=== PATIENT | female | born 1985 | race Caucasian/White ===

== ENCOUNTER 2018-11-23 23:09 | Emergency (ER) | payer BC ==
--- NOTE | 2018-11-24 00:13 | ED ---
Abdominal Pain HPI - General Chief Complaint: Abdominal Pain Stated Complaint: Transfer from [facility] Seen by Provider: 11/23/18 23:26 Source: patient, RN notes reviewed Mode of arrival: ambulatory Limitations: no limitations - History of Present Illness Initial Comments: 32-year-old female presents emergency Department as a transfer from [facility] for RIGHT UPPER QUADRANT. PATIENT REPORTS THAT SHE'S HAD SOME ON-AND- OFF PAIN WHERE QUADRANT. IT DID WORSEN AFTER SHE ATE LUNCH TODAY AND DINNER. PATIENT STATES IT IS MUCH BETTER WHEN SHE LAYS FLAT. PATIENT STATES THAT SHE IS 23 WEEKS WITH NO COMP PATIENTS. SHE DENIES CHEST PAIN OR SHORTNESS OF BREATH. PATIENT DENIES ANY LEG SPLINT, LEG EDEMA. SHE DOES ADMIT THAT THE PAIN MAKES HER NAUSEATED. PATIENT DENIES ANY DYSURIA, HEMATURIA. DENIES ANY PALPITATIONS HER AT THIS TIME. PATIENT'S GAS OPERATIONS SUPERINTENDENT IS DR. BERNABE. - Related Data Home Medications Medication Instructions Recorded Confirmed Apn-Uzck-Uwlof Acid 1 cap PO HS 11/23/18 11/23/18 [-U Capsule (formulary)] Allergies Allergy/AdvReac Type Severity Reaction Status Date / Time No Known Allergies Allergy Verified 11/23/18 23:48 Review of Systems ROS Statement: Those systems with pertinent positive or pertinent negative responses have been documented in the HPI. ROS Other: All systems not noted in ROS Statement are negative. Past Medical History Past Medical History: No Reported History History of Any Multi-Drug Resistant Organisms: None Reported Past Surgical History: No Surgical Hx Reported Past Psychological History: Anxiety, Depression Smoking Status: Never smoker Past Alcohol Use History: None Reported Past Drug Use History: None Reported General Exam Limitations: no limitations General appearance: alert, in no apparent distress Head exam: Present: atraumatic, normocephalic, normal inspection Eye exam: Present: normal appearance, PERRL, EOMI. Absent: scleral icterus, conjunctival injection, periorbital swelling ENT exam: Present: normal exam, mucous membranes moist Neck exam: Present: normal inspection. Absent: tenderness, meningismus, lymphadenopathy Respiratory exam: Present: normal lung sounds bilaterally. Absent: respiratory distress, wheezes, rales, rhonchi, stridor Cardiovascular Exam: Present: regular rate, normal rhythm, normal heart sounds. Absent: systolic murmur, diastolic murmur, rubs, gallop, clicks GI/Abdominal exam: Present: soft, tenderness (Mild right upper quadrant), normal bowel sounds. Absent: distended, guarding, rebound, rigid Back exam: Absent: CVA tenderness (R), CVA tenderness (L) Skin exam: Present: warm, dry, intact, normal color. Absent: rash Course Vital Signs 11/23/18 23:19 Temperature 98.5 F Pulse Rate 73 Respiratory 20 Rate Blood Pressure 121/77 O2 Sat by Pulse 99 Oximetry Medical Decision Making - Medical Decision Making 32-year-old female presented for right-sided abdominal pain. Patient was transferred from [facility] for ultrasound. Patient had prior workup including labs, chest x-ray, EKG which only revealed a leukocytosis. Patient IS NEGATIVE THIS TIME. PATIENT'S SYMPTOMS ARE MORE CONSISTENT WITH biliary colic. Patient will follow low-fat diet, continue Tylenol and return for any worsening symptoms. Disposition Clinical Impression: Abdominal pain, Biliary colic Disposition: HOME SELF-CARE Condition: Stable Instructions (If sedation given, give patient instructions): Abdominal Pain (ED ) Additional Instructions: Please return to the Emergency Department if symptoms worsen or any other concerns. Is patient prescribed a controlled substance at d/c from ED?: No Referrals: None,Stated [Primary Care Provider] - 1-2 days Time of Disposition: 00:49
--- NOTE | 2018-11-24 00:35 | US ---
EXAM: US Abdomen Limited-right upper quadrant CLINICAL HISTORY: Reason: Pain TECHNIQUE: Real-time ultrasound of the right upper quadrant with image documentation COMPARISON: None available FINDINGS: Liver: Liver is mildly enlarged measuring 18.9 cm in length. No focal hepatic abnormalities. Gallbladder: No evidence of cholelithiasis or gallbladder wall thickening. Common bile duct: nondilated measuring 4.5 mm. Pancreas: Pancreas is unremarkable. Right Kidney: Right kidney is of normal size. No hydronephrosis. IMPRESSION: Mild hepatomegaly. No evidence of cholelithiasis or gallbladder wall thickening.
[2018-11-24 01:16] VITALS: BP 109/57; PULSE 82; RESP 14; TEMP 98.2
== END 2018-11-24 01:15 | disposition home or self-care (01) ==
LOC: EC 23:09
DX: O99.612 Diseases of the digestive system complicating pregnancy, second trimester (principal); K80.50 Calculus of bile duct without cholangitis or cholecystitis without obstruction; Z3A.23 23 weeks gestation of pregnancy
CPT/HCPCS: 76705; 99284

== ENCOUNTER 2018-12-02 13:58 | Outpatient (CLI) | payer BC ==
[2018-12-02 15:05] LABS: Appearance,Urine Clear (Clear); Bacteria,Urine Rare /hpf; Bilirubin,Urine Negative (Negative); Blood,Urine Negative (Negative); Color,Urine Light Yellow; Glucose,Urine (UA) Negative (Negative); Ketones,Urine Negative (Negative); Leukocyte Esterase,Urine Small (Negative); Mucus,Urine Rare /hpf; Nitrite,Urine Negative (Negative); Protein,Urine Negative (Negative); RBC,Urine 1 /hpf (0-5); Specific Gravity,Urine 1.006 (1.001-1.035); Squamous Epithelial Cell,Urine <1 /hpf (0-4); Urobilinogen,Urine <2.0 mg/dL (<2.0); WBC,Urine 2 /hpf (0-5)
[2018-12-02 15:29] LABS: Basophils # (A) 0.1 k/uL (0-0.2); Basophils % (A) 0 %; Eosinophils # (A) 0.2 k/uL (0-0.7); Eosinophils % (A) 1 %; HCT 35.2 % (34.0-46.0); HGB 11.7 gm/dL (11.4-16.0); Lymphocytes # (A) 1.8 k/uL (1.0-4.8); Lymphocytes % (A) 13 %; MCH 30.7 pg (25.0-35.0); MCHC 33.2 g/dL (31.0-37.0); MCV 92.7 fL (80.0-100.0); Mean Platelet Volume 7.5; Monocytes # (A) 0.6 k/uL (0-1.0); Monocytes % (A) 4 %; Neutrophils # (A) 11.3 k/uL (1.3-7.7); Neutrophils % (A) 80 %; Platelet Count 245 k/uL (150-450); RDW 14.3 % (11.5-15.5)
[2018-12-02 15:58] LABS: ALT 28 U/L (9-52); AST 20 U/L (14-36); Albumin 3.4 g/dL (3.5-5.0); Alkaline Phosphatase 82 U/L (38-126); Anion Gap 8 mmol/L; Blood Urea Nitrogen 9 mg/dL (7-17); Calcium 9.1 mg/dL (8.4-10.2); Carbon Dioxide 20 mmol/L (22-30); Chloride 108 mmol/L (98-107); Glucose 80 mg/dL (74-99); Sodium 136 mmol/L (137-145); Total Bilirubin 0.3 mg/dL (0.2-1.3); Total Protein 6.2 g/dL (6.3-8.2)
--- NOTE | 2018-12-02 16:33 | US ---
EXAMINATION TYPE: US abdomen limited DATE OF EXAM: 12/02/2018 COMPARISON: US 11/23/2018 CLINICAL HISTORY: rt upper quad pain. 24 weeks preg. EXAM MEASUREMENTS: Liver Length: 16.8 cm Gallbladder Wall: 0.1 cm CBD: 0.5 cm Right Kidney: 12.7 x 4.3 x 5.1 cm Pancreas: Tail obscured by overlying bowel gas Liver: wnl Gallbladder: wnl Evidence for sonographic Garcia's sign: No CBD: wnl Right Kidney: wnl IMPRESSION: No sonographic evidence of cholelithiasis or acute cholecystitis. No right-sided hydronep hrosis.
--- NOTE | 2018-12-02 16:44 | US ---
EXAMINATION TYPE: US OB >= 14 wk fetus DATE OF EXAM: 12/02/2018 COMPARISON: None CLINICAL HISTORY: rt upper quad pain. 24 weeks complete RUQ pain x2 weeks TECHNIQUE: TA GESTATIONAL AGE / DATING Physician Established: (24 weeks/6 days) EDC: 03/18/2019 Dates by LMP: (24 weeks/6 days) EDC: 03/18/2019 Dates by First Scan: No previous this is first scan Dates by Current Scan: (25 weeks/0 days) EDC: 03/17/2019 Beta HCG (if available): Not available at this time SURVEY IUP: Single PLACENTA: Fundal PREVIA: No Previa MELITON: 17.5 cm Normal CERVICAL LENGTH (transabdominal: norm > 3.0cm): 3.1 cm BIOMETRY PRESENTATION: Vertex LIE: Longitudinal BPD: 6.4 cm 25 weeks / 6 days HC: 23.2 cm 25 weeks / 2 days AC: 20.48 cm 25 weeks / 0 days FL: 4.7 cm 25 weeks / 3 days ESTIMATED WEIGHT IN GRAMS: 789 grams ESTIMATED WEIGHT IN LBS/OZ: 1 lbs. 12 oz. WEIGHT PERCENTAGE BASED ON ESTABLISHED DATES: 58.9% HC/AC: 1.13 Normal FL/AC: 22.68 Normal HEART RATE: 157 bpm RHYTHM: Normal Viable IUP, measurements consistent with dates. Non-vascular, hypoechoic area visualized within the p lacenta measuring 2.2 x 1.7 x 2.4 cm IMPRESSION: Hypoechoic avascular wedge-shaped region of the along the peripheral margin of the fundal implantatio n of the placenta. Solitary image demonstrates what appears to be placental tissue at the posterior a spect and therefore differential is for a large venous steinberg or small retroplacental hemorrhage. Given no history of trauma close follow-up is recommended to ensure no interval increase in size. A Red level critical message alert has been initiated for Naresh Parker MD via the [facility] Critical Results System on 12/02/2018 4:42 PM. This message alert has been sent to Naresh Pakrer MD via the preferences provided by the clinician for the receipt of Radiology Critical Findings. Mess age ID [id number].
--- NOTE | 2018-12-02 17:08 | P.MSEPDOC ---
Presenting Problems - Arrival Data Date of Arrival on Unit: 12/02/18 Time of Arrival on Unit: 13:58 Mode of Transport: Portable I agree with the RN Medical Screening Exam: Yes Risk & Benefit of care provided described in d/c instruction: Yes Diagnosis: UPPER ABDOMINAL PAIN, UNSPECIFIED (Patient presents to triage with complaints of 4 week history of right upper quadrant back pain. Patient was in the emergency department here previously approximately a week ago and had a right upper quadrant ultrasound which was negative. She also had an EKG which was negative. Patient denies any nausea vomiting. Pain is localized to the upper right back. I did order a repeat right upper quadrant ultrasound which did not show any evidence of cholelithiasis. I also ordered a complete OB ultrasound which showed what appears to be a placental Cook although and discussion with the radiologist she cannot 100% rule out small abruption however at this point is leaning more towards a Cook. Patient is not having any vaginal bleeding. heart tones are reassuring for gestational age. At this time there is no evidence of maternal compromise. Patient went to be discharged home and I'll have her follow paternal medicine for more detailed ultrasound. I did give her instructions return if she had any vaginal bleeding or worsening pain with other concerns. Long discussion with the patient and her about clinical situation and further follow-up.)
[2018-12-02 18:10] VITALS: BP 118/73; PULSE 77; RESP 16; TEMP 97.9
--- NOTE | 2018-12-05 06:24 | P.MSEPDOC ---
Presenting Problems - Arrival Data Date of Arrival on Unit: 12/02/18 Time of Arrival on Unit: 13:58 Mode of Transport: Portable - Complaint OB-Reason for Admission/Chief Complaint: Pain, Other Comment: rt upper quad pain 4 weeks ago, on and off since.last 10 days every day starts about noon. gets worse though day Medical History - Information : 1 Para: 0 Term: 0 : 0 Abortions: Spontaneous or Elective: 0 Number of Living Children: 0 - Gestational Age Gestational Age by CR (wks/days): 24 Weeks and 6 Days Review of Systems - Review of Systems Constitutional: No problems Breast: No problems ENT: No problems Cardiovascular: No problems Respiratory: No problems Gastrointestinal: No problems Genitourinary: No problems Musculoskeletal: No problems Neurological: No problems Skin: No problems Vital Signs - Temperature Temperature: 97.9 F Temperature Source: Temporal Artery Scan - Pulse Right Radial Pulse Rate: 77 Pulse Assessment Method: Auscultation - Respirations Respiratory Rate: 16 Oxygen Delivery Method: Room Air - Blood Pressure Right Arm Blood Pressure: 118/73 Blood Pressure Mean: 88 Blood Pressure Source: Automatic Cuff Medical Screen Scoring (Pre) - Cervical Exam Dilation: Exam Deferred - Uterine Contractions Frequency: N/A Duration: N/A Intensity: N/A - Maternal Vital Signs Maternal Temperature: N/A Maternal Blood Pressure: N/A Signs of Preeclampsia: N/A Maternal Respirations: N/A - Pain Assessment Pain Location and Character: Right, Upper, Abdomen Pain Scale Used: Numeric (1 - 10) Pain Intensity: 7 - Maternal Trauma Maternal Trauma: N/A - Assessment Baseline FHR: 140 Heart Rate - NICHD Category: Category I (Normal) = 0 Position: N/A Station: N/A - Total Score Total Score (Pre): 0 - Level of Risk Level of Risk: N/A Physician Notification (Pre) - Physician Notified Physician Notified Date: 12/02/18 Physician Notified Time: 14:00 Physician/Practitioner Notifed:: lynette Spoke With: lynette New Order Received: Yes - Notification Comment Comment: came to see. discussed plan of care with pt/so Disposition - Disposition OB Disposition: Physician follow up in office, Discharge to home, Written follow up instructions reviewed Discharge Date: 12/02/18 Discharge Time: 17:00 I agree with the RN Medical Screening Exam: Yes Risk & Benefit of care provided described in d/c instruction: Yes Diagnosis: UNSPECIFIED ABDOMINAL PAIN
== END 2018-12-02 17:00 | disposition home or self-care (01) ==
LOC: FBPOP 13:58
PROVIDERS: ATTEND Obstetrics & Gynecology
DX: O99.89 Other specified diseases and conditions complicating pregnancy, childbirth and the puerperium (principal); R10.11 Right upper quadrant pain; Z3A.24 24 weeks gestation of pregnancy
CPT/HCPCS: 76705; 76805; 80053; 81001; 85025; 99213

== ENCOUNTER 2019-03-13 06:00 | Inpatient (IN) | payer BC ==
--- NOTE | 2019-03-13 06:07 | P.HPOB ---
History of Present Illness H&P Date: 03/13/19 Chief Complaint: Patient is presenting for requested induction of labor. This patient is a pleasant 33-year-old 1 para 0 female estimated date of confinement 03/18/2019 estimated gestational age 39-2/7 weeks who presents to labor and delivery for requested induction of labor. has been complicated by some upper abdominal pain for which time showed an ultrasound done at [facility] as suggested a placental abruption at 28 weeks. Patient however was referred to maternal- medicine which said that there was no evidence of placental abruption and thought to just have musculoskeletal rib pain. Patient's also been measuring large an ultrasound approximately 2 weeks ago showed estimated weight at 8 lbs. 2 oz. and patient's requested delivery at this time. Review of Systems Gastrointestinal: Reports heartburn Genitourinary: Reports Menstruation: Reports amenorrhea Musculoskeletal: Reports as per HPI Past Medical History Past Medical History: No Reported History History of Any Multi-Drug Resistant Organisms: None Reported Past Surgical History: No Surgical Hx Reported Past Psychological History: Anxiety, Depression Smoking Status: Never smoker Past Alcohol Use History: None Reported Past Drug Use History: None Reported Medications and Allergies Home Medications Medication Instructions Recorded Confirmed Type Oru-Yghx-Rrjap Acid 1 cap PO HS 11/23/18 12/02/18 History [-U Capsule (formulary)] Allergies Allergy/AdvReac Type Severity Reaction Status Date / Time No Known Allergies Allergy Verified 11/23/18 23:48 Exam - OBG Physical Exam Abdomen: bowel sounds normal, no diffuse tenderness, no bruit present, no guarding noted, no hepatomegaly, no splenomegaly, no mass Vulva: both: normal Vagina: normal moisture, no discharge Cervix: no lesion (Cervix in the office is 2 cm dilated and uneffaced -2 station.), no discharge Uterus: enlarged (Fundal height was 42 cm) Results blood work shows she is O positive, rubella low positive, hepatitis B negative, HIV nonreactive, RPR nonreactive, Glucola was normal, group B strep was negative, level III ultrasound was normal, ultrasound most recently done on February 28 showed estimated weight at 8 lbs. 2 oz. with mild polyhydramnios. Assessment and Plan Assessment: This is a pleasant 33-year-old 1 para 0 female estimated gestational age 39-2/7 weeks gestation who presents to labor and delivery for requested induction of labor. Patient's ultrasound shows large for gestational age and estimated weight at this time is approximately 8-1/2 to 8-3/4 pounds. Had a long discussion with the Mirella and her about the estimated weight and the relative inaccuracy of the ultrasound at this gestation. I did also discuss elective section and at this point they have declined and wished to proceed with induction of labor. We did discuss the possibility of shoulder dystocia and the inability to predict this ahead of time and possible complications. All the patient's questions were answered and she wishes to proceed with induction and attempted vaginal delivery at this time. (1) 39 weeks gestation of Status: Acute Code(s): Z3A.39 - 39 WEEKS GESTATION OF SNOMED Code(s): 32161543 (2) Large for gestational age fetus Status: Acute Code(s): OCN9340 - SNOMED Code(s): 072096931
[2019-03-13] MEDS ORDERED: LIDOCAINE 0.5% (PF) 5 MG/ML (50 ML SDV) SQ PRN (06:34)
[2019-03-13] MEDS ORDERED: TERBUTALINE 1 MG/ML VIAL SQ PRN (06:34)
[2019-03-13] MEDS ORDERED: OXYTOCIN 10 UNIT/ML 1 ML VIAL IM PRN (06:34)
[2019-03-13] MEDS ORDERED: CARBOPROST TROMETHAMINE 250 MCG/ML 1 ML AMP IM PRN (06:34)
[2019-03-13] MEDS ORDERED: OXYTOCIN 30 UNITS/500 ML NS 30 UNIT in SALINE 1 500ML.BAG IV SCH (06:34)
[2019-03-13] MEDS ORDERED: METHYLERGONOVINE 0.2 MG/ML 1 ML AMP IM PRN (06:34)
[2019-03-13 06:41] VITALS: BMI 31.8
[2019-03-13] MEDS: LACTATED RINGERS 1,000 ML IV SCH ×3 (07:02→15:20)
[2019-03-13 08:02] LABS: Basophils % (A) 0 %; Eosinophils # (A) 0.1 k/uL (0-0.7); Eosinophils % (A) 1 %; HCT 35.5 % (34.0-46.0); HGB 11.7 gm/dL (11.4-16.0); Lymphocytes # (A) 2.3 k/uL (1.0-4.8); Lymphocytes % (A) 16 %; MCH 28.5 pg (25.0-35.0); MCHC 32.9 g/dL (31.0-37.0); MCV 86.5 fL (80.0-100.0); Mean Platelet Volume 9.3; Monocytes # (A) 0.7 k/uL (0-1.0); Monocytes % (A) 5 %; Neutrophils # (A) 11.4 k/uL (1.3-7.7); Neutrophils % (A) 77 %; Platelet Count 219 k/uL (150-450); RDW 15.7 % (11.5-15.5); WBC 14.9 k/uL (3.8-10.6)
[2019-03-13] MEDS ORDERED: ROPIVACAINE 5MG/ML 20ML VIAL ONE (12:31)
[2019-03-13] MEDS ORDERED: SODIUM CHLORIDE 0.9% 100 ML BAG ONE (12:31)
[2019-03-13] MEDS ORDERED: fentaNYL (PF) 50 MCG/ML 5 ML AMP ONE (12:31)
--- NOTE | 2019-03-13 20:01 | P.PROBDLV ---
Vaginal Delivery Note - . Vaginal Delivery Note: Normal spontaneous vaginal delivery viable female infant Apgars 9 and 9 delivery time is 1937 hrs. Please see dictated H&P for intimate details of this patient's admission. In brief summary this is a pleasant 33-year-old 1 para 0 female 39-2/7 weeks gestation who is admitted to labor and delivery this morning for induction of labor secondary for large for gestational age. Patient is admitted she is 3- 4 cm dilated has artificial rupture membranes for clear fluid. Labor is augmented with Pitocin per protocol. Patient does get an epidural for pain control and progresses normally. Patient pushes for approximately 1 hour 45 minutes brings the head to the perineum. This time it is evident patient's perineum is very long she would not deliver without a laceration therefore a small midline episiotomy is made. Then have controlled delivery of infant's head over the perineum. Mouth and nares are bulb suctioned and there is no evidence of a nuchal cord. With gentle downward traction we then have deliver the anterior and posterior shoulder and rest this 's body. This is a vigorous viable female Apgars are 9 and 9 delivery time is 1937 hrs. has spontaneous respiration and good cry and grossly appears normal. After delivery of the infant the is late on the mother's abdomen and after the cord is done pulsating is doubly clamped and cut. It appears to be trivascular. The placenta is then spontaneously delivered intact. Inspection of the perineum shows a second-degree laceration which is repaired with 3-0 Vicryl usual fashion excellent reapproximation is noted. Estimated blood loss is 150 mL. There are no complications. and mother are stable in delivery room.
[2019-03-13] MEDS ORDERED: BENZOCAINE/MENTHOL SPRAY 1 GM/SPRAY AEROSOL TOPICAL PRN (20:19)
[2019-03-13] MEDS ORDERED: LANOLIN CREAM 5 GM TUBE TOPICAL PRN (20:19)
[2019-03-13] MEDS ORDERED: HYDROCORTISONE 2.5% RECTAL CREAM 30 GM TUBE RECTAL PRN (20:19)
[2019-03-13] MEDS ORDERED: diphenhydrAMINE 25 MG CAP PO PRN (20:19)
[2019-03-13] MEDS ORDERED: BISACODYL 10 MG SUPP RECTAL PRN (20:19)
[2019-03-13] MEDS ORDERED: WITCH HAZEL 1 EACH MED..PAD TOPICAL PRN (20:19)
[2019-03-13] MEDS ORDERED: diphenhydrAMINE 50 MG/ML 1 ML VIAL IVP PRN (20:19)
[2019-03-13] MEDS ORDERED: SIMETHICONE 80 MG CHEWABLE PO PRN (20:19)
[2019-03-13] MEDS ORDERED: ZOLPIDEM 5 MG TAB PO PRN (20:19)
[2019-03-13] MEDS ORDERED: OXYTOCIN 20 UNITS/1000 ML NS 1,000 ML IV SCH (20:19)
[2019-03-13] MEDS ORDERED: MEASLES-MUMPS-RUBELLA VACC/PF 12,500 UNIT/0.5 ML VIAL SQ ONE (20:19)
[2019-03-13] MEDS: SENNOSIDES-DOCUSATE SODIUM 1 EACH TAB PO SCH (20:42)
[2019-03-13] MEDS: IBUPROFEN 600 MG TAB PO PRN (22:29)
[2019-03-14] MEDS: IBUPROFEN 600 MG TAB PO PRN ×3 (06:26→19:02)
--- NOTE | 2019-03-14 06:27 | P.PNOBGVD ---
Subjective - Subjective Patient reports: Reports appetite normal, Reports voiding normally, Reports pain well controlled, Reports ambulating normally : doing well Objective - Latest Vital Signs Latest vital signs: Vital Signs Temp Pulse Resp BP Pulse Ox 03/14/19 04:00 98.3 F 79 16 116/74 03/13/19 23:51 98.2 F 94 16 119/74 03/13/19 22:00 97.1 F L 90 14 120/67 03/13/19 21:30 95 14 128/88 03/13/19 21:00 97.1 F L 92 14 136/79 03/13/19 20:45 97 14 131/79 03/13/19 20:30 109 H 14 117/63 03/13/19 20:15 103 H 14 122/69 03/13/19 20:00 98.5 F 102 H 16 133/84 03/13/19 06:37 97.2 F L 86 17 134/80 100 Intake and Output 03/13/19 03/13/19 03/14/19 14:59 22:59 06:59 Output Total 450 Balance -450 Output: Urine 450 Straight 450 Other: # Voids 0 1 1 - Exam Lungs: bilateral: normal Chest: Normal S1, Normal S2 Extremities: Present: normal Abdomen: Present: normal appearance, soft Uterus: Present: normal, firm - Labs Labs: Abnormal Lab Results - Last 24 Hours (Table) 03/13/19 Range/Units 06:40 WBC 14.9 H (3.8-10.6) k/uL RDW 15.7 H (11.5-15.5) % Neutrophils # 11.4 H (1.3-7.7) k/uL Assessment and Plan Assessment: day #1. Patient is resting without complaints. Vital signs are stable she is afebrile. Uterus is firm nontender she's having normal lochia. My impression is a normal course. Plan is to continue routine care discharge home tomorrow. (1) 39 weeks gestation of Current Visit: No Status: Acute Code(s): Z3A.39 - 39 WEEKS GESTATION OF SNOMED Code(s): 70169185 (2) Large for gestational age fetus Current Visit: No Status: Acute Code(s): [id number] - SNOMED Code(s): 449338773
[2019-03-14] MEDS: SENNOSIDES-DOCUSATE SODIUM 1 EACH TAB PO SCH ×2 (07:39→21:33)
[2019-03-14 12:09] VITALS: RESP 16
[2019-03-14] MEDS: ACETAMINOPHEN TAB 325 MG TAB PO PRN (20:26)
[2019-03-15] MEDS: IBUPROFEN 600 MG TAB PO PRN ×2 (03:16→09:45)
[2019-03-15] MEDS: ACETAMINOPHEN TAB 325 MG TAB PO PRN (05:42)
--- NOTE | 2019-03-15 06:26 | P.PNOBGVD ---
Subjective - Subjective Patient reports: Reports appetite normal, Reports voiding normally, Reports pain well controlled, Reports ambulating normally : doing well Objective - Latest Vital Signs Latest vital signs: Vital Signs Temp Pulse Resp BP 03/15/19 00:00 98.2 F 77 16 127/80 03/14/19 16:00 98.4 F 74 16 115/68 03/14/19 12:00 98.2 F 79 16 123/74 03/14/19 07:41 97.9 F 70 18 123/76 Intake and Output 03/14/19 03/14/19 03/15/19 14:59 22:59 06:59 Other: # Voids 1 - Exam Lungs: bilateral: normal Chest: Normal S1, Normal S2 Extremities: Present: normal Abdomen: Present: normal appearance, soft Uterus: Present: normal, firm Assessment and Plan Assessment: day #2. Patient is resting without complaints. Vital signs are stable she's afebrile. Uterus is firm nontender she's having normal lochia. My impression this is a normal course. Plan is to continue routine care discharge home later today. (1) 39 weeks gestation of Current Visit: No Status: Acute Code(s): Z3A.39 - 39 WEEKS GESTATION OF SNOMED Code(s): 91013305 (2) Large for gestational age fetus Current Visit: No Status: Acute Code(s): XBC0814 - SNOMED Code(s): 924390468
--- NOTE | 2019-03-15 06:32 | P.DS ---
Providers Date of admission: 03/13/19 06:23 Expected date of discharge: 03/15/19 Attending physician: Naresh Parker Primary care physician: Stated None - Discharge Diagnosis(es) (1) 39 weeks gestation of Current Visit: No Status: Acute (2) Large for gestational age fetus Current Visit: No Status: Acute Hospital Course: Please see dictated H&P for intimate details of this patient's admission. Brief summary this pleasant 33-year-old 1 para 0 female 39-2/7 weeks gestation admitted to labor and delivery for induction of labor. Patient is admitted she was on have a vaginal delivery viable female infant. Please see dictated delivery note. day #2 patient's felt to be stable for discharge home follow up in 6 weeks. Procedures: Normal spontaneous vaginal delivery Patient Condition at Discharge: Good Plan - Discharge Summary New Discharge Prescriptions: New Ibuprofen [Motrin] 600 mg PO Q6HR PRN #30 tab PRN Reason: Mild Pain Or Fever >= 100.5 No Action Drl-Vqql-Gfyxh Acid [-U Capsule (formulary)] 1 cap PO HS Discharge Medication List Eig-Igcp-Nxiov Acid [-U Capsule (formulary)] 1 cap PO HS 11/23/18 [History] Ibuprofen [Motrin] 600 mg PO Q6HR PRN #30 tab 03/15/19 [Rx] Follow up Appointment(s)/Referral(s): Naresh Parker MD [STAFF PHYSICIAN] - 04/24/19 10:45 am Patient Instructions/Handouts: Vaginal Delivery (DC) Activity/Diet/Wound Care/Special Instructions: No intercourse or anything per vagina. Please call if any fever, chills, excessive vaginal bleeding, and/or abdominal pain. Discharge Disposition: HOME SELF-CARE
[2019-03-15 08:34] VITALS: BP 118/69; PULSE 86; TEMP 98.4
[2019-03-15] MEDS: SENNOSIDES-DOCUSATE SODIUM 1 EACH TAB PO SCH (09:00)
== END 2019-03-15 12:35 | disposition home or self-care (01) | DRG 807 ==
LOC: 4FBP 06:23
PROVIDERS: ADMIT Obstetrics & Gynecology; ATTEND Obstetrics & Gynecology
PROC: 10E0XZZ Delivery of Products of Conception, External Approach (ICD-10-PCS; principal; 2019-03-13)
PROC: 0KQM0ZZ Repair Perineum Muscle, Open Approach (ICD-10-PCS; 2019-03-13)
PROC: 0W8NXZZ Division of Female Perineum, External Approach (ICD-10-PCS; 2019-03-13)
PROC: 3E0134Z Introduction of Serum, Toxoid and Vaccine into Subcutaneous Tissue, Percutaneous Approach (ICD-10-PCS; 2019-03-13)
PROC: 3E033VJ Introduction of Other Hormone into Peripheral Vein, Percutaneous Approach (ICD-10-PCS; 2019-03-13)
PROC: 10907ZC Drainage of Amniotic Fluid, Therapeutic from Products of Conception, Via Natural or Artificial Opening (ICD-10-PCS; 2019-03-13)
PROC: 00HU33Z Insertion of Infusion Device into Spinal Canal, Percutaneous Approach (ICD-10-PCS; 2019-03-13)
PROC: 3E0R3BZ Introduction of Anesthetic Agent into Spinal Canal, Percutaneous Approach (ICD-10-PCS; 2019-03-13)
DX: O36.63X0 Maternal care for excessive fetal growth, third trimester, not applicable or unspecified (principal); Z37.0 Single live birth; O70.1 Second degree perineal laceration during delivery; Z3A.39 39 weeks gestation of pregnancy; Z23 Encounter for immunization; Z79.899 Other long term (current) drug therapy; Z86.59 Personal history of other mental and behavioral disorders
CPT/HCPCS: 85025; 86850; 86900; 86901; 90471; 90707

== ENCOUNTER → 2020-07-22 | Outpatient (CLI) | payer BC ==
[2020-07-23 01:16] LABS: HIV 2 AB Non-Reactive (Non-Reactive); HIV AB P24 Non-Reactive (Non-Reactive); HIV P24 AG Non-Reactive (Non-Reactive)
[2020-07-23 11:24] LABS: Alpha Fetoprotein 105.5 ng/mL; Alpha Fetoprotein (M.O.M) 2.64; B-HCG (M.O.M.) 1.77; Gestational Age (days) 5; Human Chorionic Gonadotropin 44.7 IU/mL; Inhibin A (M.O.M.) 0.84; Interpretation SeeBelow; Maternal Age at EDD (Yrs) 35; Smoker No; Unconjugated Estriol (M.O.M.) 1.28
== END | disposition home or self-care (01) ==
LOC: LABWHC1 16:25
PROVIDERS: ATTEND Obstetrics & Gynecology
DX: Z34.82 Encounter for supervision of other normal pregnancy, second trimester (principal); R53.83 Other fatigue
CPT/HCPCS: 36415; 82105; 82677; 84702; 86336; 87390

== ENCOUNTER 2020-12-18 06:00 | Inpatient (IN) | payer BC ==
--- NOTE | 2020-12-18 06:25 | P.HPOB ---
History of Present Illness H&P Date: 12/18/20 Chief Complaint: Requested induction of labor. This patient is a pleasant 35-year-old 2 para 1 female estimated date of confinement 12/25/2020 estimated gestational age 39-0/7 weeks who presents to labor and delivery for requested induction of labor. Patient's care is complicated by advanced maternal age. Patient did have a normal level III ultrasound due to a elevated risk of neural tube defects on her quad screen. Patient's been on baby aspirin due to her age. Patient also had a false positive HIV test at an outside facility and it was inaccurate due to it being a rapid test. Follow-up testing showed this to be negative. We've also been watching this patient for growth and ultrasound last week showed estimated weight to be 8 pounds and she does request proceed with delivery at this time. Patient's last baby was diagnosed with Dravets Syndrome, (SCN1A gene mutation). Patient did see a genetic counselor and both she and her were tested and are not carriers therefore this was thought to be a random mutation. The incidence of this was thought to be 1 in 40,000. Patient declined any genetic testing prenatally because she and her states that would do nothing different. They also were counseled by maternal medicine. Review of Systems Genitourinary: Reports Menstruation: Reports amenorrhea Past Medical History Past Medical History: No Reported History Additional Past Medical History / Comment(s): Term vaginal delivery 7 lbs. 12 oz. baby girl. She was diagnosed with Dravets Syndrome History of Any Multi-Drug Resistant Organisms: None Reported Past Surgical History: No Surgical Hx Reported Additional Past Surgical History / Comment(s): wisdom teeth, upper lower GI scope when pt was in high school Past Anesthesia/Blood Transfusion Reactions: No Reported Reaction Past Psychological History: Anxiety, Depression Smoking Status: Never smoker Past Alcohol Use History: None Reported Past Drug Use History: None Reported - Past Family History Mother Family Medical History: Diabetes Mellitus Additional Family Medical History / Comment(s): Daughter with Dravets Syndrome Medications and Allergies Home Medications Medication Instructions Recorded Confirmed Type [id number]-Jhbp-[id number] Acid 1 cap PO HS 11/23/18 03/13/19 History [-U Capsule (formulary)] Ibuprofen [Motrin] 600 mg PO Q6HR PRN #30 tab 03/15/19 Rx Allergies Allergy/AdvReac Type Severity Reaction Status Date / Time No Known Allergies Allergy Verified 03/13/19 06:33 Exam - OBG Physical Exam Abdomen: bowel sounds normal, no diffuse tenderness, no bruit present, no guarding noted, no hepatomegaly, no splenomegaly, no mass Vulva: both: normal Vagina: normal moisture, no discharge Cervix: no lesion (Cervix in the office 2-3 cm 80% effaced -2 station.), no discharge Uterus: enlarged (Fundal height 40 cm) Results blood work shows she is O positive, rubella immune, RPR nonreactive, hepatitis B negative, HIV was negative, quad screen showed increased risk of neural tube defects, level III ultrasound was normal, ultrasounds last week in the office showed estimated weight at 8 lbs. 0 oz. Group B strep was positive. Assessment and Plan Assessment: This is a pleasant 35-year-old 2 para 1 female 39-0/7 weeks gestation who presents for delivery secondary to large for gestational age and maternal discomfort. Patient a positive perineal group B strep culture. Plan is antibiotic prophylaxis, induction of labor, and anticipate vaginal delivery. (1) Group B streptococcal carriage complicating Current Visit: Yes Status: Acute Code(s): O99.820 - STREPTOCOCCUS B CARRIER STATE COMPLICATING SNOMED Code(s): 978513941023869 (2) 39 weeks gestation of Current Visit: No Status: Acute Code(s): Z3A.39 - 39 WEEKS GESTATION OF SNOMED Code(s): 79451469 (3) Large for gestational age fetus Current Visit: No Status: Acute Code(s): CWL1011 - SNOMED Code(s): 683603202
[2020-12-18] MEDS ORDERED: CARBOPROST TROMETHAMINE 250 MCG/ML 1 ML AMP IM PRN (06:31)
[2020-12-18] MEDS ORDERED: OXYTOCIN 30 UNITS/500 ML NS 30 UNIT in SALINE 1 500ML.BAG IV SCH ×2 (06:31→14:33)
[2020-12-18] MEDS ORDERED: OXYTOCIN 10 UNIT/ML 1 ML VIAL IM PRN (06:31)
[2020-12-18] MEDS ORDERED: AMPICILLIN 2,000 MG in SODIUM CHLORIDE 0.9% 100 ML IVPB STA (06:31)
[2020-12-18] MEDS ORDERED: LIDOCAINE 0.5% (PF) 5 MG/ML (50 ML SDV) SQ PRN (06:31)
[2020-12-18] MEDS ORDERED: METHYLERGONOVINE 0.2 MG/ML 1 ML AMP IM PRN (06:31)
[2020-12-18] MEDS ORDERED: TERBUTALINE 1 MG/ML VIAL SQ PRN (06:31)
[2020-12-18] MEDS: LACTATED RINGERS 1,000 ML IV SCH ×2 (06:35→10:17)
[2020-12-18 08:07] LABS: Basophils % (A) 0 %; Eosinophils # (A) 0.1 k/uL (0-0.7); Eosinophils % (A) 1 %; HCT 33.7 % (34.0-46.0); HGB 11.5 gm/dL (11.4-16.0); Lymphocytes # (A) 1.9 k/uL (1.0-4.8); Lymphocytes % (A) 18 %; MCH 30.4 pg (25.0-35.0); MCHC 34.2 g/dL (31.0-37.0); MCV 88.9 fL (80.0-100.0); Mean Platelet Volume 9.4; Monocytes # (A) 0.4 k/uL (0-1.0); Monocytes % (A) 4 %; Neutrophils # (A) 7.6 k/uL (1.3-7.7); Neutrophils % (A) 76 %; Platelet Count 177 k/uL (150-450); RBC 3.79 m/uL (3.80-5.40); RDW 14.2 % (11.5-15.5); WBC 10.1 k/uL (3.8-10.6)
[2020-12-18] MEDS ORDERED: SODIUM CHLORIDE 0.9% 100 ML BAG ONE (09:53)
[2020-12-18] MEDS ORDERED: fentaNYL (PF) 50 MCG/ML 5 ML AMP ONE (09:53)
[2020-12-18] MEDS ORDERED: BUPIVACAINE (PF) 0.25% 30 ML VIAL ONE (09:53)
[2020-12-18] MEDS ORDERED: ROPIVACAINE 100 MG, fentaNYL (PF) 200 MCG in SODIUM CHLORIDE 0.9% 76 ML EPIDURAL ONE (10:43)
[2020-12-18] MEDS: AMPICILLIN 1,000 MG in SODIUM CHLORIDE 0.9% 50 ML IVPB SCH ×2 (11:23→20:16)
[2020-12-18] MEDS ORDERED: bisacodyL 10 MG SUPP RECTAL PRN (14:33)
[2020-12-18] MEDS ORDERED: BENZOCAINE/MENTHOL SPRAY 1 GM/SPRAY AEROSOL TOPICAL PRN (14:33)
[2020-12-18] MEDS ORDERED: diphenhydrAMINE 50 MG/ML 1 ML VIAL IVP PRN (14:33)
[2020-12-18] MEDS ORDERED: ZOLPIDEM 5 MG TAB PO PRN (14:33)
[2020-12-18] MEDS ORDERED: LANOLIN CREAM 5 GM TUBE TOPICAL PRN (14:33)
[2020-12-18] MEDS ORDERED: diphenhydrAMINE 25 MG CAP PO PRN (14:33)
[2020-12-18] MEDS ORDERED: HYDROCORTISONE 2.5% RECTAL CREAM 30 GM TUBE RECTAL PRN (14:33)
[2020-12-18] MEDS ORDERED: SIMETHICONE 80 MG CHEWABLE PO PRN (14:33)
--- NOTE | 2020-12-18 17:05 | P.PROBDLV ---
Vaginal Delivery Note - . Vaginal Delivery Note: Normal vaginal delivery viable male Apgars 9 and 9 delivery time is 1409 hrs. Please see dictated H&P for intimate details of this patient's admission. Brief summary this is a pleasant 35-year-old 2 para 1 female 39-0/7 weeks gestation admitted to labor and delivery for requested induction of labor. On admission patient is 3 cm dilated artificial rupture membranes for clear fluid. Labor is induced with Pitocin per protocol and she is given antibiotic prophylaxis due to positive group B strep culture. Patient's labor progresses and she gets an epidural for pain control. Patient thereafter quickly gets to complete pushes a proximally 2 times pushes the head to the perineum. It is obvious the perineum is restricted therefore midline episiotomy is made. We have controlled delivery of 's head over the perineum. Mouth and nares are bulb suctioned. There is no evidence of a nuchal cord. 's presentation is a possibility anterior presentation. There is a hand presenting posteriorly with the head. With gentle downward traction we then have deliver the anterior and posterior shoulder and rest this infant's body. This is a vigorous viable male infant Apgars are 9 and 9 delivery time is 1409 hrs. After delivery of the infant the is late on the mother's abdomen and after the cord is done pulsating, it is doubly clamped and cut. It does appear to be trivascular. The placenta spontaneously delivered intact. Estimated blood loss is approximately 100 mL. Midline laceration repaired with 3-0 Vicryl in the usual fashion. Excellent reapproximation is noted. All counts are correct 3. There are no complications. Infant and mother stable in delivery room.
[2020-12-18] MEDS: IBUPROFEN 600 MG TAB PO SCH ×2 (18:04→23:53)
[2020-12-18] MEDS: SENNOSIDES-DOCUSATE SODIUM 1 EACH TAB PO SCH ×2 (18:21→21:19)
[2020-12-18] MEDS: ACETAMINOPHEN TAB 325 MG TAB PO PRN (21:23)
[2020-12-19] MEDS: ACETAMINOPHEN TAB 325 MG TAB PO PRN (02:53)
[2020-12-19] MEDS: IBUPROFEN 600 MG TAB PO SCH ×3 (05:31→11:09)
--- NOTE | 2020-12-19 05:59 | P.PNOBGVD ---
Subjective - Subjective Patient reports: Reports appetite normal, Reports voiding normally, Reports pain well controlled, Reports ambulating normally : doing well Objective - Latest Vital Signs Latest vital signs: Vital Signs Temp Pulse Resp BP 12/19/20 00:00 98.1 F 71 14 132/71 12/18/20 20:00 98.4 F 87 16 113/67 12/18/20 16:34 98.6 F 70 16 118/70 12/18/20 16:04 78 16 128/72 12/18/20 15:15 83 16 126/81 12/18/20 15:00 83 16 132/80 12/18/20 14:45 98.2 F 87 16 120/63 12/18/20 14:30 111 H 16 126/67 12/18/20 14:15 98.2 F 93 16 126/65 12/18/20 06:30 77 16 137/86 Intake and Output 12/18/20 12/18/20 12/19/20 14:59 22:59 06:59 Intake Total 8.017 Output Total 300 Balance -291.983 Intake: Intake, IV Titration 8.017 Amount Oxytocin 30 Units/500 ml 8.017 Ns 30 unit In Saline 1 500ml.bag @ Per Protocol IV .Q0M [facility] Rx#:[id number] Output: Urine 200 Estimated Blood Loss 100 Other: # Voids 2 - Exam Lungs: bilateral: normal Chest: Normal S1, Normal S2 Extremities: Present: normal Abdomen: Present: normal appearance, soft Uterus: Present: normal, firm - Labs Labs: Abnormal Lab Results - Last 24 Hours (Table) 12/18/20 Range/Units 07:14 RBC 3.79 L (3.80-5.40) m/uL Hct 33.7 L (34.0-46.0) % Assessment and Plan Assessment: Post day #1. Patient is resting without complaints. She wishes to go home. Vital signs are stable she is afebrile. Uterus is firm nontender and she is having normal lochia. My impression this is a normal course. Plan is to continue routine care discharge home later today. (1) Group B streptococcal carriage complicating Current Visit: Yes Status: Acute Code(s): O99.820 - STREPTOCOCCUS B CARRIER STATE COMPLICATING SNOMED Code(s): 772762055893493 (2) 39 weeks gestation of Current Visit: No Status: Acute Code(s): Z3A.39 - 39 WEEKS GESTATION OF SNOMED Code(s): 10792242 (3) Large for gestational age fetus Current Visit: No Status: Acute Code(s): NJE1636 - SNOMED Code(s): 129347026
--- NOTE | 2020-12-19 06:07 | P.DS ---
Providers Date of admission: 12/18/20 06:07 Expected date of discharge: 12/19/20 Attending physician: Naresh Parker Primary care physician: Stated None - Discharge Diagnosis(es) (1) Group B streptococcal carriage complicating Current Visit: Yes Status: Acute (2) 39 weeks gestation of Current Visit: No Status: Acute (3) Large for gestational age fetus Current Visit: No Status: Acute Hospital Course: Please see dictated H&P for intimate details of this patient's admission. Brief summary is a pleasant 35-year-old 2 para 1 female 39-0/7 weeks gestation admitted to labor and delivery for induction of labor. Patient quickly goes on have a vaginal delivery viable male . Please see dictated delivery note. day 1 patient wishes to go home as felt be stable for discharge home follow up with me in 6 weeks. Procedures: Induction of labor and normal vaginal delivery Patient Condition at Discharge: Good Plan - Discharge Summary Discharge Rx Participant: No New Discharge Prescriptions: New Ibuprofen [Motrin] 600 mg PO Q6H #30 tab No Action Dju-Jabs-Xulzw Acid [-U Capsule (formulary)] 1 cap PO HS Discharge Medication List Xxe-Blyo-Masqb Acid [-U Capsule (formulary)] 1 cap PO HS 11/23/18 [History] Ibuprofen [Motrin] 600 mg PO Q6H #30 tab 12/19/20 [Rx] Follow up Appointment(s)/Referral(s): Naresh Parker MD [STAFF PHYSICIAN] - 01/27/21 10:15 am Patient Instructions/Handouts: Vaginal Delivery (DC) Activity/Diet/Wound Care/Special Instructions: No intercourse or anything per vagina for 6 weeks. Please call if any fever, chills, excessive vaginal bleeding, and/or abdominal pain. Discharge Disposition: HOME SELF-CARE
[2020-12-19] MEDS: SENNOSIDES-DOCUSATE SODIUM 1 EACH TAB PO SCH (08:29)
[2020-12-19 09:00] VITALS: BP 123/73; PULSE 80; RESP 15; TEMP 97.4
== END 2020-12-19 15:24 | disposition home or self-care (01) | DRG 807 ==
LOC: 4FBP 06:07
PROVIDERS: ADMIT Obstetrics & Gynecology; ATTEND Obstetrics & Gynecology
PROC: 10E0XZZ Delivery of Products of Conception, External Approach (ICD-10-PCS; principal; 2020-12-18)
PROC: 10907ZC Drainage of Amniotic Fluid, Therapeutic from Products of Conception, Via Natural or Artificial Opening (ICD-10-PCS; principal; 2020-12-18)
PROC: 3E033VJ Introduction of Other Hormone into Peripheral Vein, Percutaneous Approach (ICD-10-PCS; principal; 2020-12-18)
PROC: 3E0R3NZ Introduction of Analgesics, Hypnotics, Sedatives into Spinal Canal, Percutaneous Approach (ICD-10-PCS; principal; 2020-12-18)
PROC: 00HU33Z Insertion of Infusion Device into Spinal Canal, Percutaneous Approach (ICD-10-PCS; principal; 2020-12-18)
PROC: 0W8NXZZ Division of Female Perineum, External Approach (ICD-10-PCS; principal; 2020-12-18)
DX: O99.824 Streptococcus B carrier state complicating childbirth (principal); Z37.0 Single live birth; O99.344 Other mental disorders complicating childbirth; O36.63X0 Maternal care for excessive fetal growth, third trimester, not applicable or unspecified; F32.9 Major depressive disorder, single episode, unspecified; F41.9 Anxiety disorder, unspecified; Z3A.39 39 weeks gestation of pregnancy; Z83.3 Family history of diabetes mellitus
CPT/HCPCS: 85025; 86850; 86900; 86901; 88307